=== PATIENT | male | born 1965 | race Caucasian/White ===

== ENCOUNTER 2024-03-02 06:21 | Day surgery (SDC) | payer BC, SELFPAY | END 2024-03-02 16:05 | disposition home or self-care (01) | LOC: GI 06:21 | PROVIDERS: ATTENDING PHYSICIAN Specialist; FAMILY PHYSICIAN Internal Medicine | DX: Z12.11 Encounter for screening for malignant neoplasm of colon (principal); D12.3 Benign neoplasm of transverse colon; K63.3 Ulcer of intestine; Z86.0101 Personal history of adenomatous and serrated colon polyps | CPT/HCPCS: 45385; 45380; 88305; 88312 ==

== ENCOUNTER → 2024-12-22 20:28 | Outpatient (REF) | payer BC, SELFPAY | LOC: MRI 20:28 | PROVIDERS: ATTENDING PHYSICIAN Hospitalist | DX: R20.2 Paresthesia of skin (principal); G89.29 Other chronic pain | CPT/HCPCS: 72141 ==